=== PATIENT | female | born 1995 | race Caucasian/White ===

== ENCOUNTER 2017-08-18 05:00 | Emergency (ER) | payer OTHER ==
[2017-08-18 05:06] VITALS: BP 121/72
[2017-08-18] MEDS ORDERED: diphenhydrAMINE 25 MG CAP PO ONE (05:29)
[2017-08-18] MEDS ORDERED: predniSONE 20 MG TAB PO ONE (05:29)
--- NOTE | 2017-08-18 05:34 | EDPHY ---
H & P Stated Complaint: Generalized rash, poss r/t amoxcillin Time Seen by Provider: 08/18/17 05:23 HPI/ROS: Chief Complaint: Rash, itching HPI: 22-year-old woman was diagnosed with strep throat several days ago and started on amoxicillin. She took the antibiotic for several days but had skipped a dose. Yesterday she took a double dose. Yesterday evening she started developing a diffuse rash on her trunk. Is very itchy. She took 1 Benadryl tablet last night without any relief. No fevers or chills. She has a mild sore throat. No headache. No nausea or vomiting. Does not have a history of any allergies in the past. She has taken amoxicillin in the past without any difficulties. ROS: 10 point Review of Systems is negative except as noted in the HPI. PMH: Denies Social History: No smoking, no alcohol, no recreational drug use Family History: non-contributory Physical Exam: Gen: Awake, Alert, No Distress HEENT: Nose: no rhinorrhea Eyes: PERRLA, EOMI Mouth: Moist mucosa Neck: Supple, no JVD Chest: nontender, lungs clear to auscultation Heart: S1, S2 normal, no murmur Abd: Soft, non-tender, no guarding Back: no CVA tenderness, no midline tenderness Ext: no edema, non-tender Skin: Diffuse maculopapular rash which is blanching on her trunk and extremities. There is also some associated hives. It is not painful to the touch. Is not warm. There are no petechiae or purpura. Neuro: CN II-XII intact, Sensation grossly intact, Strength 5/5 in bilateral upper and lower extremities - Personal History LMP (Females 10-55): Now Current Tetanus Diphtheria and Acellular Pertussis (TDAP): Yes - Medical/Surgical History Hx Asthma: No Hx Chronic Respiratory Disease: No Hx Diabetes: No Hx Cardiac Disease: No Hx Renal Disease: No Hx Cirrhosis: No Hx Alcoholism: No Hx HIV/AIDS: No Hx Splenectomy or Spleen Trauma: No Other PMH: denies - Social History Smoking Status: Never smoked Constitutional: Initial Vital Signs Temperature (C) 36.5 C 08/18/17 05:03 Heart Rate 60 08/18/17 05:03 Respiratory Rate 19 08/18/17 05:03 Blood Pressure 121/72 H 08/18/17 05:03 O2 Sat (%) 100 08/18/17 05:03 O2 Delivery Mode Room Air Allergies/Adverse Reactions: No Known Allergies Allergy (Unverified 08/18/17 05:03) Home Medications: Medication Instructions Recorded Azithromycin [Zithromax] 250 mg PO DAILY #6 tab 08/18/17 predniSONE 60 mg PO DAILY #6 tab 08/18/17 Medical Decision Making ED Course/Re-evaluation: 22-year-old woman presenting with a drug rash secondary to amoxicillin use. She has been given Benadryl and prednisone here. Will start her on azithromycin for her strep. She will continue taking Benadryl and prednisone. Follow up with primary care physician in 3-4 days for further evaluation. She is not toxic in appearance at this time. It is a blanching rash. Looks very much like a drug eruption. Departure - Departure Disposition: Home, Routine, Self-Care Clinical Impression: Allergic reaction Condition: Good Instructions: Antibiotic Medication Allergy (ED) Additional Instructions: Discontinue the amoxicillin and start taking azithromycin for strep throat. You may take Benadryl 2 tablets every 4-6 hours according to package instructions. You may take prednisone 60 mg a day for the next 3 days. Follow up with primary care physician in 3-4 days further evaluation. Return to the emergency department for worsening rash, fevers or chills, headache, nausea, vomiting, or any other concerns. Referrals: [facility] [Other] - As per Instructions Prescriptions: Azithromycin [Zithromax] 250 mg PO DAILY #6 tab predniSONE 60 mg PO DAILY #6 tab
== END 2017-08-18 05:45 | disposition home or self-care (01) ==
DX: R21 Rash and other nonspecific skin eruption (principal); T36.0X5A Adverse effect of penicillins, initial encounter
CPT/HCPCS: J7512